=== PATIENT | female | born 1965 | race Caucasian/White ===

== ENCOUNTER 2021-10-06 14:39 | Emergency (ER) | payer BC, SELFPAY ==
[2021-10-06 15:30] VITALS: BP 123/69; PULSE 84; RESP 18; TEMP 37.2; O2SAT 100; BMI 23.1
[2021-10-06 15:52] LABS: UTC Influenza A Antigen Negative (Negative); UTC Influenza B Antigen Negative (Negative)
--- NOTE | 2021-10-06 16:14 | HMH.EDUTC ---
[facility] [place] Clinical Impression: Sinusitis Qualifiers: Sinusitis location: maxillary Chronicity: acute Recurrence: non-recurrent Qualified Code(s): J01.00 - Acute maxillary sinusitis, unspecified Disposition: Home, Self-Care Condition on Discharge: Good Instructions: DI for Sinusitis Additional Instructions: Rest, fluids, take meds as directed Prescriptions: Cefdinir [Omnicef 300mg Capsule] 300 mg PO BID #20 cap Transmission Status: Pending to [facility] predniSONE [Prednisone 20mg Tab] 20 mg PO BID 5 Days #10 tab Transmission Status: Pending to [facility] Pseudoephedrine HCl [Sudafed 12 Hour 120mg Tab] 1 tab PO BID PRN 10 Days #20 tab PRN Reason: congestion/drainage Transmission Status: Pending to [facility] Referrals: Joseph Mcguire APRN [Primary Care Provider] - Time of Disposition: 16:45 Medical Decision Making - Joe Inquiry Pt receiving controlled substance: No Vital Signs: 10/06/21 15:30 10/06/21 16:19 Temperature 98.9 F 98.9 F Temperature Source Oral Pulse Rate 84 Pulse Rate [Left Brachial] 84 Respiratory Rate 18 18 Blood Pressure 123/69 Blood Pressure [Left Arm] 123/69 Blood Pressure Mean [Left Arm] 87 Blood Pressure Source [Left Arm] Automatic Cuff Blood Pressure Position [Left Arm] Sitting 02 Sat by Pulse Oximetry 100 Oxygen Delivery Method Room Air - Lab Data Lab results reviewed: Yes: I reviewed the patient's lab results. Lab Results 10/06/21 15:15: Group A Strep Rapid Negative 10/06/21 15:41: Influenza Type A Ag Negative, Influenza Type B Ag Negative Orders (Tests/Meds): ED MEDICATIONS Discontinued Medications Generic Name Dose Route Start Last Admin Trade Name Freq PRN Reason Stop Dose Admin Ceftriaxone Sodium 1 gm 10/06/21 16:31 10/06/21 16:35 Ceftriaxone 1gm Vial IM 10/06/21 16:32 1 gm ONCE ONE Administration Lidocaine HCl 0 ml 10/06/21 16:31 10/06/21 16:35 Lidocaine 1% 5ml Pf Vial IM 10/06/21 16:32 2 ml ONCE ONE Administration ORDERS Category Date Time Status Strep Screen Confirmation Stat Micro 10/06/21 15:15 Received [facility] [place] HPI - General Stated complaint: Fever,sore throat,achy Time Seen by Provider: 10/06/21 16:15 Mode of Arrival: Ambulatory Source of Information: Patient Limitations: No Limitations Description of Symptoms (Recalled from Triage Doc. by RN): PATIENT C/O SORE THROAT, FEVER AND HEADACHE SINCE FRIDAY HEENT Symptoms (Recalled from RN notes): Yes Resp Symptoms (Recalled from RN notes): No Skin Symptoms (Recalled from RN notes): No MS Symptoms (Recalled from RN notes): No Functional Status (Recalled from RN notes): WNL - History of Present Illness Provider Complaint: Sore throat, fever, headache X 2 days. Fever around 102 this am. Head is throbbing. Throat is very sore. No rash. No vomiting or diarrhea. Onset (ago): day(s) (2) Location: head Relieving factors: none Exacerbating factors: none Associated symptoms: fever/chills, headaches Treatments prior to arrival: NSAID - Related Data Home Medications Medication Instructions Recorded Confirmed Atorvastatin Calcium [Lipitor 20mg 20 mg PO HS 10/06/21 10/06/21 Tab] Previous Rx's Medication Instructions Recorded Cefdinir [Omnicef 300mg Capsule] 300 mg PO BID #20 cap 10/06/21 Pseudoephedrine HCl [Sudafed 12 1 tab PO BID PRN 10 Days #20 tab 10/06/21 Hour 120mg Tab] predniSONE [Prednisone 20mg 20 mg PO BID 5 Days #10 tab 10/06/21 Tab] Allergies Allergy/AdvReac Type Severity Reaction Status Date / Time Penicillins Allergy Verified 10/06/21 15:43 - Worker's Comp Is this a Worker's Comp case?: No [facility] History - Hepatitis A Screen Attestation statement:: This patient has been screened for Hepatitis A risk factors. I have reviewed the patient's past medical history: Yes ROS Obtained: Yes All systems reviewed & no additional complaints
[2021-10-06 16:19] VITALS: BP 123/69; PULSE 84; RESP 18; TEMP 37.2; O2SAT 100
[2021-10-06 16:34] LABS: Strep Scrn Group A (Rapid) Negative (Negative)
== END 2021-10-06 16:50 | disposition home or self-care (01) ==
PROVIDERS: Emergency Provider Physician Assistant; PCP Nurse Practitioner Family
DX: J01.00 Acute maxillary sinusitis, unspecified (principal)
CPT/HCPCS: 87430; 87804; 96372; 99212; G0463; J0696